=== PATIENT | female | born 1970 | race Caucasian/White ===

== ENCOUNTER 2016-07-16 06:13 | Emergency (ER) | payer MEDICARE, MEDICAID ==
[2016-07-16] MEDS ORDERED: diphenhydrAMINE 50 MG/ML SDV IVPUSH ONE (06:33)
[2016-07-16] MEDS ORDERED: Ketorolac 30 MG/ML SDV IVPUSH ONE (06:33)
[2016-07-16] MEDS ORDERED: Ondansetron 4 MG/2 ML SDV IVPUSH ONE (06:34)
[2016-07-16] MEDS ORDERED: Sodium Chloride 0.9% 1,000 ML IV SCH (06:45)
[2016-07-16] MEDS: Sodium Chloride 0.9% 10 ML Syringe FLUSH PRN ×3 (07:02→08:51)
--- NOTE | 2016-07-16 07:21 | EDM.PDOC ---
ED HPI HEADACHE COMPLAINT - General Chief Complaint: Headache Stated Complaint: headache Time Seen by Provider: 07/16/16 07:02 Source of Information: Reports: Patient History Limitations: Reports: No limitations - History of Present Illness INITIAL COMMENTS - FREE TEXT/NARRATIVE: Has hx/o migraines but none recently. This headache has been going on for 4 days. Some nausea. No emesis Has photophobia Had recent botox injection for headaches Timing/Duration: Reports: day(s): Location: Reports: frontal Quality: Reports: pounding Severity: Reports: severe - Related Data Allergies/ADRs: Allergies Allergy/AdvReac Type Severity Reaction Status Date / Time Sulfa (Sulfonamide Allergy Intermediate Rash Verified 07/16/16 06:19 Antibiotics) fexofenadine [From Mya] Allergy Lethargy Verified 07/16/16 06:19 nitrofurantoin Allergy Rash Verified 07/16/16 06:19 [From Macrobid] quetiapine fumarate Allergy Rash Verified 07/16/16 06:19 [From Seroquel] Home Meds: Home Meds Ascorbic Acid [Vitamin C with Radha Hips] 1,000 mg PO DAILY 09/06/14 [History] Calcium Carbonate [Calcium] 500 mg PO ASDIRECTED PRN 09/06/14 [History] Calcium/Cranberry Fruit [Cranberry 400 mg Caplet] 1 each PO DAILY 09/06/14 [ History] Cetirizine HCl [All Day Allergy] 10 mg PO DAILY 09/06/14 [History] Cholecalciferol (Vitamin D3) [Vitamin D3] 5,000 unit PO DAILY 09/06/14 [History] ClonazePAM [KlonoPIN] 0.5 mg PO BID 09/06/14 [History] Etodolac [Etodolac] 1 tab PO BID 09/06/14 [History] FA/Lycopene/Lut/MV,Ca,Iron,Min [Centrum] 1 tab PO DAILY 09/06/14 [History] Glucosamine/D3/Boswellia Ana Laura [Osteo Bi-Flex Caplet] 1 each PO DAILY 09/06/14 [ History] Iron,Carbonyl/Vit C/Vit B12/Fa [Iron 100 Plus Tablet] 1 each PO DAILY 09/06/14 [ History] Lactobacillus Combo No.6 [Probiotic Complex] 1 each PO DAILY 09/06/14 [History] Melatonin 30 mg PO BEDTIME 09/06/14 [History] Omeprazole [Prilosec] 20 mg PO DAILY 09/06/14 [History] Ondansetron 4 mg PO ASDIRECTED PRN 09/06/14 [History] SUMAtriptan Succinate [Imitrex] 50 mg PO ASDIRECTED 09/06/14 [History] Vitamin B Complex 1 each PO DAILY 09/06/14 [History] guaiFENesin [Guaifenesin] 400 mg PO DAILY 09/06/14 [History] Eszopiclone [Lunesta] 3 mg PO BEDTIME 07/16/16 [History] Gabapentin [Neurontin] 600 mg PO ASDIRECTED 07/16/16 [History] Mirtazapine [Mirtazapine] 7.5 mg PO BEDTIME 07/16/16 [History] Onabotulinumtoxina [Botox] 1 each SUBCUT ASDIRECTED 07/16/16 [History] Orphenadrine [Norflex] 100 - 200 mg PO BID PRN 07/16/16 [History] Past Medical History Other OB/BYN History: hysterectomy - Past Surgical History Other HEENT Surgeries/Procedures: wisdom teeth removal Social & Family History - Tobacco Use Smoking Status *Q: Never Smoker Second Hand Smoke Exposure: No - Alcohol Use Days Per Week of Alcohol Use: 0 - Recreational Drug Use Recreational Drug Use: No ED ROS GENERAL - Review of Systems Review Of Systems: See Below Neurological: Reports: Headache - Physical Exam Exam: See Below Exam Limited By: No limitations General Appearance: moderate distress Ears: normal external exam Nose: normal inspection Head Exam: atraumatic Neck: supple Respiratory/Chest: lungs clear Cardiovascular: regular rate, rhythm GI/Abdominal: soft Neuro Exam (Abbreviated): alert, oriented, normal cognition, no motor/sensory deficits Course - Vital Signs Last Recorded V/S: Last Vital Signs Temp 36.7 C 07/16/16 06:14 Pulse 88 07/16/16 06:14 Resp 16 07/16/16 06:14 BP 122/84 07/16/16 06:14 Pulse Ox 100 07/16/16 06:14 - Orders/Labs/Meds Orders: Active Orders 24 hr Category Date Time Status Sodium Chloride 0.9% [Normal Saline] 1,000 ml Med 07/16/16 06:45 Active IV ASDIRECTED Sodium Chloride 0.9% [Saline Flush] Med 07/16/16 07:07 Active 10 ml FLUSH ASDIRECTED PRN Medication Orders Sodium Chloride (Normal Saline) 1,000 mls @ 999 mls/hr IV ASDIRECTED THANG Last Admin: 07/16/16 06:56 Dose: 999 mls/hr Sodium Chloride (Saline Flush) 10 ml FLUSH ASDIRECTED PRN PRN Reason: Keep Vein Open Last Admin: 07/16/16 07:07 Dose: 10 ml Admin: 07/16/16 07:02 Dose: 10 ml Meds: Medications Generic Name Dose Route Start Last Admin Trade Name Freq PRN Reason Stop Dose Admin Sodium Chloride 1,000 mls @ 999 mls/hr 07/16/16 06:45 07/16/16 06:56 Normal Saline IV 999 mls/hr ASDIRECTED THANG Administration Sodium Chloride 10 ml 07/16/16 07:07 07/16/16 07:07 Saline Flush FLUSH 10 ml ASDIRECTED PRN Administration Keep Vein Open Discontinued Medications Generic Name Dose Route Start Last Admin Trade Name Freq PRN Reason Stop Dose Admin Diphenhydramine HCl 50 mg 07/16/16 06:33 07/16/16 06:55 Benadryl IVPUSH 07/16/16 06:34 50 mg ONETIME ONE Administration Ketorolac Tromethamine 30 mg 07/16/16 06:33 07/16/16 06:54 Toradol IVPUSH 07/16/16 06:34 30 mg ONETIME ONE Administration Ondansetron HCl 4 mg 07/16/16 06:34 07/16/16 06:55 Zofran IVPUSH 07/16/16 06:35 4 mg ONETIME ONE Administration - Re-Assessments/Exams Free Text/Narrative Re-Assessment/Exam: 07/16/16 07:20 Pt given IV Benadryl, IV Toradol, IV Zofran and IVF Departure - Departure Time of Disposition: 08:30 Disposition: Home, Self-Care 01 Clinical Impression: Migraine Instructions: Recurrent Migraine Headache, [id number] Forms: ED Department Discharge - My Orders Last 24 Hours: My Active Orders 07/16/16 06:45 Sodium Chloride 0.9% [Normal Saline] 1,000 ml IV ASDIRECTED 07/16/16 07:07 Sodium Chloride 0.9% [Saline Flush] 10 ml FLUSH ASDIRECTED PRN - Assessment/Plan Last 24 Hours: My Active Orders 07/16/16 06:45 Sodium Chloride 0.9% [Normal Saline] 1,000 ml IV ASDIRECTED 07/16/16 07:07 Sodium Chloride 0.9% [Saline Flush] 10 ml FLUSH ASDIRECTED PRN
[2016-07-16] MEDS ORDERED: Haloperidol Lactate 5 MG/ML SDV IVPUSH ONE (08:28)
[2016-07-16 08:58] VITALS: BP 101/54
== END 2016-07-16 09:20 | disposition home or self-care (01) ==
LOC: LL.ED 06:13
DX: G43.909 Migraine, unspecified, not intractable, without status migrainosus (principal); Z88.2 Allergy status to sulfonamides; Z88.8 Allergy status to other drugs, medicaments and biological substances; Z79.899 Other long term (current) drug therapy
CPT/HCPCS: 96374; 96375; 99284; J1200; J1630; J1885; J2405; J7030; J7050; 99283

== ENCOUNTER 2020-02-19 08:59 | Day surgery (SDC) | payer MEDICARE, MEDICAID ==
[~2020-02-19 08:59] MED LIST: Lactated Ringers 1,000 ML IV SCH; Sodium Chloride 0.9% 10 ML Syringe FLUSH PRN
--- NOTE | 2020-02-19 09:48 | PCM.HPR ---
H & P Addendum review - H & P Addendum Review Date of Original H & P: 02/10/20 Date Reviewed: 02/19/20 (n) Time Reviewed: 09:48 Patient was Examined: No Changes
[2020-02-19] MEDS ORDERED: Midazolam 1 MG/ML 2 ML SDV ONE (09:50)
[2020-02-19] MEDS ORDERED: Propofol 200 MG/20 ML SDV ONE ×2 (09:50→10:30)
[2020-02-19] MEDS ORDERED: Propofol 200 MG/20 ML SDV IV ONE (10:00)
--- NOTE | 2020-02-19 10:41 | PCM.OPNOTE ---
- General Post-Op/Procedure Note Date of Surgery/Procedure: 02/19/20 Operative Procedure(s): Colonoscopy Findings: Normal. poor prep Pre Op Diagnosis: Screening Post-Op Diagnosis: Same Anesthesia Technique: MAC Primary Surgeon: Stephen Gonzalez Anesthesia Provider: Martha Painting Complications: None Condition: Good
--- NOTE | 2020-02-19 12:30 | OR ---
Date of Procedure: 02/19/2020 PREOPERATIVE DIAGNOSIS: Colon screening. POSTOPERATIVE DIAGNOSIS: Normal colonoscopy to the ascending colon. PROCEDURE: Colonoscopy. ANESTHESIA: MAC. PROCEDURE IN DETAIL: Patient was brought to the procedure room where she was placed on her left side and IV sedation administered. Digital rectal exam was performed, which was normal. Colonoscope was inserted and advanced to the level of the cecum with difficulty getting through a very tortuous, poorly-prepped colon filled with thick liquid stool. I was able to get the full length of the scope in, which brought me close to the cecum, but I could not identify the appendiceal lumen or ileocecal valve because of the stool present. Upon withdrawing the scope, I did not find any large polyps, tumors, or other obvious abnormalities. Air was removed and the scope withdrawn. Patient tolerated the procedure well. I recommend she undergo a repeat colonoscopy again in one year with a 2-day bowel prep for better visualization. CM LEY MD /[id number]
[2020-02-19 15:48] VITALS: BP 119/80; PULSE 72
== END 2020-02-19 11:45 | disposition home or self-care (01) ==
LOC: LL.SDS 08:59
PROVIDERS: ATTEND Surgery
DX: Z12.11 Encounter for screening for malignant neoplasm of colon (principal); E78.2 Mixed hyperlipidemia; F41.1 Generalized anxiety disorder; M79.7 Fibromyalgia; B00.9 Herpesviral infection, unspecified; G89.29 Other chronic pain; F32.9 Major depressive disorder, single episode, unspecified; I10 Essential (primary) hypertension; K21.9 Gastro-esophageal reflux disease without esophagitis; Z01.812 Encounter for preprocedural laboratory examination; Z20.828 Contact with and (suspected) exposure to other viral communicable diseases; Z79.899 Other long term (current) drug therapy; Z88.2 Allergy status to sulfonamides; Z88.1 Allergy status to other antibiotic agents; Z88.8 Allergy status to other drugs, medicaments and biological substances; Z98.890 Other specified postprocedural states; Z87.891 Personal history of nicotine dependence
CPT/HCPCS: 00812; J2250; J2704; J7120; U0002

== ENCOUNTER 2021-02-06 13:23 | Emergency (ER) | payer BC, MEDICARE, MEDICAID ==
--- NOTE | 2021-02-06 14:21 | EDM.PDOC ---
ED HPI GENERAL MEDICAL PROBLEM - General Chief Complaint: Lower Extremity Injury/Pain Stated Complaint: Left Foot Pain, drop camera tripod on foot Time Seen by Provider: 02/06/21 13:26 Source of Information: Reports: Patient History Limitations: Reports: No Limitations - History of Present Illness INITIAL COMMENTS - FREE TEXT/NARRATIVE: Patient had camera tripod drop onto top of left forefoot. Immediate bruising/swelling noted. Tender. Able to walk. Denies other injuries/acute complaints. - Related Data Allergies Allergy/AdvReac Type Severity Reaction Status Date / Time Sulfa (Sulfonamide Allergy Intermediate Rash Verified 07/16/16 06:19 Antibiotics) fexofenadine [From Mya] Allergy Lethargy Verified 07/16/16 06:19 nitrofurantoin Allergy Rash Verified 07/16/16 06:19 [From Macrobid] quetiapine fumarate Allergy Rash Verified 07/16/16 06:19 [From Seroquel] Home Meds: Home Meds Calcium/Cranberry Fruit [Cranberry 400 mg Caplet] 1 each PO DAILY 09/06/14 [History] Cetirizine HCl [All Day Allergy] 1 - 2 tab PO ASDIRECTED PRN 09/06/14 [History] ClonazePAM [KlonoPIN] 0.5 mg PO TID PRN 09/06/14 [History] FA/Lycopene/Lut/MV,Ca,Iron,Min [Centrum] 1 tab PO DAILY 09/06/14 [History] Ondansetron 4 mg PO ASDIRECTED PRN 09/06/14 [History] SUMAtriptan succinate [Imitrex] 100 mg PO ASDIRECTED PRN 09/06/14 [History] Vitamin B Complex 1 each PO DAILY 09/06/14 [History] Gabapentin [Neurontin] 600 mg PO TID 07/16/16 [History] Onabotulinumtoxina [Botox] 1 each SUBCUT ASDIRECTED 07/16/16 [History] Ascorbic Acid [C-1000 with Radha Hips] 1,000 mg PO DAILY 02/19/20 [History] Cholecalciferol (Vitamin D3) [Vitamin D3] 2,000 unit PO DAILY 02/19/20 [History] Cyclobenzaprine [Flexeril] 10 mg PO TID PRN 02/19/20 [History] Glucosamine/D3/Boswellia Ana Laura [Osteo Bi-Flex Tablet] 1 tab PO ASDIRECTED 02/19/20 [History] L.acidoph,Paracasei, B.lactis [Probiotic] 1 cap PO ASDIRECTED 02/19/20 [History] Magnesium Oxide [Magnesium] 400 mg PO ASDIRECTED 02/19/20 [History] Meloxicam [Mobic] 7.5 mg PO BID 02/19/20 [History] Non-Formulary Medication [NF Drug] 1 each PO ASDIRECTED 02/19/20 [History] Non-Formulary Medication [NF Drug] 1 each PO ASDIRECTED 02/19/20 [History] Pantoprazole Sodium [Protonix] 20 mg PO DAILY 02/19/20 [History] Pravastatin Sodium 5 mg PO DAILY 02/19/20 [History] Pseudoephedrine HCl [Sudafed 12 Hour] 120 mg PO BID 02/19/20 [History] Suvorexant [Belsomra] 20 mg PO DAILY 02/19/20 [History] Ubidecarenone [Co Q-10] 200 mg PO DAILY 02/19/20 [History] guaiFENesin [Mucus Relief ER] 600 mg PO BID 02/19/20 [History] Past Medical History HEENT History: Reports: Other (See Below) Other HEENT History: wears glasses Cardiovascular History: Reports: High Cholesterol Gastrointestinal History: Reports: Cholelithiasis, GERD Other [employer] History: hysterectomy Musculoskeletal History: Reports: Fibromyalgia Neurological History: Reports: Migraines Psychiatric History: Reports: Anxiety Endocrine/Metabolic History: Reports: Vitamin D Deficiency Hematologic History: Reports: Anemia Dermatologic History: Reports: None - Past Surgical History Other Cardiovascular Surgeries/Procedures: Hypotension GI Surgical History: Reports: Appendectomy, Cholecystectomy, Colonoscopy Female Surgical History: Reports: Hysterectomy, Salpingo-Oophorectomy Social & Family History - Caffeine Use Caffeine Use: Reports: Soda Review of Systems - Review of Systems Review Of Systems: See Below Musculoskeletal: Reports: Foot Pain Skin: Reports: Bruising Neurological: Reports: No Symptoms ED EXAM, GENERAL - Physical Exam Exam: See Below Exam Limited By: No Limitations General Appearance: Alert, WD/WN, No Apparent Distress Eye Exam: Bilateral Eye: EOMI, PERRL Ears: Hearing Grossly Normal Throat/Mouth: Normal Voice, No Airway Compromise Head: Atraumatic, Normocephalic Neck: Supple Respiratory/Chest: No Respiratory Distress Cardiovascular: Normal Peripheral Pulses Extremities: Normal Capillary Refill, Other (hematoma noted over distal left top of foot. Tender. Able to wiggle toes.) Neurological: Alert, Oriented, Normal Cognition, No Motor/Sensory Deficits Psychiatric: Normal Affect, Normal Mood Skin Exam: Warm, Dry, Intact, Ecchymosis Course - Orders/Labs/Meds Orders: Active Orders 24 hr Category Date Time Status Foot Comp Min 3V Lt [CR] Stat Exams 02/06/21 13:24 Taken - Re-Assessments/Exams Free Text/Narrative Re-Assessment/Exam: 02/06/21 14:44 Xray performed. No noted fracture. Suspect simple traumatic hematoma from broken blood vessel on top of the foot. Usual course for hematomas reviewed with patient. Will have nurse wrap with Coban for support/pressure. Patient to follow up as needed prn problems. Departure - Departure Time of Disposition: 14:20 Disposition: Home, Self-Care 01 Condition: Good Clinical Impression: Hematoma of left foot - Discharge Information *PRESCRIPTION DRUG MONITORING PROGRAM REVIEWED*: Not Applicable *COPY OF PRESCRIPTION DRUG MONITORING REPORT IN PATIENT ANIKET: Not Applicable Instructions: Hematoma, [id number] Referrals: PCP,None [Primary Care Provider] - Forms: ED Department Discharge Additional Instructions: Keep foot wrapped today to help apply some pressure over the hematoma. Elevate/Tylenol to assist with pain. Activity as tolerated. Follow up as needed. - My Orders Last 24 Hours: My Active Orders 02/06/21 13:24 Foot Comp Min 3V Lt [CR] Stat - Assessment/Plan Last 24 Hours: My Active Orders 02/06/21 13:24 Foot Comp Min 3V Lt [CR] Stat
[2021-02-06 16:24] VITALS: BP 117/62; PULSE 105
== END 2021-02-06 14:30 | disposition home or self-care (01) ==
LOC: LL.ED 13:23 → SUPCPDRO 13:23 → LL.ED 14:30
DX: S90.32XA Contusion of left foot, initial encounter (principal); K21.9 Gastro-esophageal reflux disease without esophagitis; D64.9 Anemia, unspecified; Z88.2 Allergy status to sulfonamides; Z88.8 Allergy status to other drugs, medicaments and biological substances; Z88.1 Allergy status to other antibiotic agents; Z79.899 Other long term (current) drug therapy; W20.8XXA Other cause of strike by thrown, projected or falling object, initial encounter
CPT/HCPCS: 73630-LT; 99283; 99283-25

== ENCOUNTER 2021-09-26 20:18 | Emergency (ER) | payer BC, MEDICARE, MEDICAID ==
[2021-09-26 20:52] VITALS: BP 139/59; PULSE 91
[2021-09-26] MEDS ORDERED: Diphtheria/Tetanus Toxoids,Adult (Td) 0.5 ML SDV IM ONE (21:21)
[2021-09-26] MEDS ORDERED: Ciprofloxacin 500 MG Tab PO SCH (21:30)
[2021-09-26] MEDS ORDERED: Diphtheria,Pertussis(Acell),Tetanus Vaccine 0.5 ML Syringe IM ONE (21:31)
== END 2021-09-26 21:50 | disposition home or self-care (01) ==
LOC: LL.ED 20:18
DX: S80.812A Abrasion, left lower leg, initial encounter (principal); E78.00 Pure hypercholesterolemia, unspecified; K21.9 Gastro-esophageal reflux disease without esophagitis; Z23 Encounter for immunization; Z79.899 Other long term (current) drug therapy; W55.03XA Scratched by cat, initial encounter
CPT/HCPCS: 90471; 90715; 99283

== ENCOUNTER 2022-02-21 01:20 | Emergency (ER) | payer BC, MEDICARE, MEDICAID ==
[2022-02-21 01:25] VITALS: BP 125/57; PULSE 87
[2022-02-21] MEDS ORDERED: Ketorolac 30 MG/ML SDV IM ONE (01:46)
== END 2022-02-21 02:55 | disposition home or self-care (01) ==
LOC: LL.ED 01:20
DX: S30.0XXA Contusion of lower back and pelvis, initial encounter (principal); E78.00 Pure hypercholesterolemia, unspecified; K21.9 Gastro-esophageal reflux disease without esophagitis; D64.9 Anemia, unspecified; Z88.2 Allergy status to sulfonamides; Z88.0 Allergy status to penicillin; Z88.1 Allergy status to other antibiotic agents; Z88.8 Allergy status to other drugs, medicaments and biological substances; Z79.899 Other long term (current) drug therapy; W10.9XXA Fall (on) (from) unspecified stairs and steps, initial encounter
CPT/HCPCS: 72100; 96372; 99283; 99284; J1885

== ENCOUNTER 2022-03-23 09:33 | Day surgery (SDC) | payer BC, MEDICARE, MEDICAID ==
[~2022-03-23 09:33] MED LIST changes: -Lactated Ringers 1,000 ML IV SCH; +Midazolam 1 MG/ML 2 ML SDV ONE; +Propofol 200 MG/20 ML SDV ONE
[2022-03-23] MEDS ORDERED: Sodium Chloride 0.9% 10 ML Syringe FLUSH PRN (09:34)
[2022-03-23] MEDS: Lactated Ringers 1,000 ML IV SCH (10:30)
[2022-03-23 15:18] VITALS: PULSE 73
[2022-03-23 15:19] VITALS: BP 101/64
== END 2022-03-23 13:43 | disposition home or self-care (01) ==
LOC: LL.SDS 09:33
PROVIDERS: ATTEND Surgery
DX: Z12.11 Encounter for screening for malignant neoplasm of colon (principal); K58.9 Irritable bowel syndrome, unspecified; F41.9 Anxiety disorder, unspecified; D64.9 Anemia, unspecified; F31.9 Bipolar disorder, unspecified; Z79.899 Other long term (current) drug therapy; Z80.0 Family history of malignant neoplasm of digestive organs; Z86.010 Personal history of colon polyps; Z90.49 Acquired absence of other specified parts of digestive tract; Z88.8 Allergy status to other drugs, medicaments and biological substances; Z88.2 Allergy status to sulfonamides; Z88.1 Allergy status to other antibiotic agents; Z88.3 Allergy status to other anti-infective agents; Z90.710 Acquired absence of both cervix and uterus; Z87.891 Personal history of nicotine dependence
CPT/HCPCS: 00812; J2250; J2704; J7120